=== PATIENT | male | born 1975 | race African-American/Black ===

== ENCOUNTER 2023-08-11 06:50 | Emergency (ER) | payer OTHER ==
[~2023-08-11] VITALS: Ht 167.6 cm; Wt 77.3 kg
[2023-08-11 08:08] VITALS: BP 125/99; PULSE 60; RESP 16; TEMP 98.1; O2SAT 98
[2023-08-11] MEDS ORDERED: METH-1182 PO (08:24)
[2023-08-11] MEDS ORDERED: IBUP-1456 PO (08:24)
[2023-08-11] MEDS: KETOROLAC TROMETH 60MG/2ML VIAL IM ONE ×2 (08:30→08:35)
== END 2023-08-11 08:39 | disposition home or self-care (01) ==
LOC: ER 06:50
DX: M25.512 Pain in left shoulder (principal); M24.9 Joint derangement, unspecified; Z79.1 Long term (current) use of non-steroidal anti-inflammatories (NSAID); Z79.899 Other long term (current) drug therapy; W01.0XXA Fall on same level from slipping, tripping and stumbling without subsequent striking against object, initial encounter; Y93.89 Activity, other specified; Y92.89 Other specified places as the place of occurrence of the external cause; Y99.8 Other external cause status
CPT/HCPCS: 73030; J1885

== ENCOUNTER 2023-08-14 07:09 | Emergency (ER) | payer OTHER ==
[~2023-08-14] VITALS: Ht 167.6 cm; Wt 80.8 kg
[~2023-08-14 07:09] MED LIST: IBUP-1456 PO; METH-1182 PO
[2023-08-14 08:42] VITALS: BP 142/96; PULSE 62; RESP 18; TEMP 98.4; O2SAT 96
[2023-08-14] MEDS ORDERED: MELO-335 PO (09:09)
== END 2023-08-14 09:13 | disposition home or self-care (01) ==
LOC: ER 07:09
DX: M24.9 Joint derangement, unspecified (principal); Z79.1 Long term (current) use of non-steroidal anti-inflammatories (NSAID); Z79.899 Other long term (current) drug therapy